=== PATIENT | male | born 1935 | race Two or more races ===

== ENCOUNTER 2019-07-09 16:45 | Inpatient (IN) | payer OTHER ==
[~2019-07-09] VITALS: Ht 180.3 cm; Wt 81.6 kg
[~2019-07-09 16:45] MED LIST: ARICEPT5 MG; CELEBREX; IBUPROFEN800 MG PO; NAMENDA5 MG; NEO-POLYMYXIN-H10 ML OT; RESTORIL7.5 MG
== END 2019-08-08 13:37 | disposition home or self-care (01) | DRG 309 ==
LOC: ER 16:45 → SEC-K 07-10 07:10 → MEDJ 07-10 07:10
PROVIDERS: ADMIT Student in an Organized Health Care Education/Training Program
PROC: 4A033R1 Measurement of Arterial Saturation, Peripheral, Percutaneous Approach (ICD-10-PCS; 2019-07-10)
PROC: 0T9B70Z Drainage of Bladder with Drainage Device, Via Natural or Artificial Opening (ICD-10-PCS; 2019-07-10)
PROC: 4A12X4Z Monitoring of Cardiac Electrical Activity, External Approach (ICD-10-PCS; 2019-07-10)
PROC: B246ZZZ Ultrasonography of Right and Left Heart (ICD-10-PCS; principal; 2019-07-12)
PROC: 8E0ZXY6 Isolation (ICD-10-PCS; 2019-07-12)
DX: I48.0 Paroxysmal atrial fibrillation (principal); N39.0 Urinary tract infection, site not specified; D68.318 Other hemorrhagic disorder due to intrinsic circulating anticoagulants, antibodies, or inhibitors; I67.89 Other cerebrovascular disease; I08.0 Rheumatic disorders of both mitral and aortic valves; R55 Syncope and collapse; R31.0 Gross hematuria; E87.6 Hypokalemia; B96.1 Klebsiella pneumoniae [K. pneumoniae] as the cause of diseases classified elsewhere; F43.22 Adjustment disorder with anxiety; Z79.01 Long term (current) use of anticoagulants